=== PATIENT | female | born 1950 | race African-American/Black ===

== ENCOUNTER → 2016-11-08 | Outpatient (CLI) | payer MEDICARE ==
[~2016-11-08] MED LIST: AMLO10 PO; ASPI-146 PO; ASPI325T PO; ATEN100T PO; ATEN1TAB75 PO; COMMODE 3-IN-11 MIS; CPMMACHINE; ENOX40IN SQ; ENOX40P SQ; FOLI1TAB PO; FOLI1TAB6 PO; METF500T PO; NORC5TAB PO; OXYB5TAB10 PO; OXYB5TAB33 PO; SULF500 PO; TRIA37.5 PO; TRIA37.512 PO; WALKER WHEELS/F1 MIS; [UNRECOGNIZED DRUG - CODE] PO
== END ==
LOC: CPRE 09:10
PROVIDERS: ATTEND Orthopaedic Surgery
DX: M17.12 Unilateral primary osteoarthritis, left knee (principal)

== ENCOUNTER 2016-11-24 06:57 | Inpatient (IN) | payer MEDICARE ==
[~2016-11-24] VITALS: Ht 167.6 cm; Wt 108.2 kg
[~2016-11-24 06:57] MED LIST changes: -ASPI-146 PO; -ASPI325T PO; -ATEN1TAB75 PO; -COMMODE 3-IN-11 MIS; -CPMMACHINE; -ENOX40IN SQ; -ENOX40P SQ; -FOLI1TAB PO; -METF500T PO; -NORC5TAB PO; -OXYB5TAB33 PO; -TRIA37.512 PO; -WALKER WHEELS/F1 MIS
[2016-11-24] MEDS ORDERED: VANCOMYCIN 1000 MG/NS 250 ML (for <70 kg) IV SCH ×2 (07:30)
[2016-11-24] MEDS ORDERED: LACTATED RINGER'S 1000 ML IV PRN (07:30)
[2016-11-24] MEDS ORDERED: METOPROLOL TARTRATE 25 MG TAB PO PRN (07:30)
[2016-11-24] MEDS ORDERED: ROPIVACAINE PERI-ARTICULAR INJECTION. P-ARTICULR SCH ×5 (07:30)
[2016-11-24] MEDS ORDERED: INSULIN HUMAN REGULAR 1,000 UNITS/10 ML VIAL SQ PRN (07:30)
[2016-11-24] MEDS ORDERED: CHLORHEXIDINE GLUCONATE 2 % 1 PACK (2 CLOTHS) TOPICAL PRN (07:30)
[2016-11-24] MEDS ORDERED: TRANEXAMIC ACID INJ 1,082 MG in SODIUM CHLORIDE 0.9% INJ 100 ML IV SCH ×2 (07:30→13:00)
[2016-11-24] MEDS ORDERED: POVIDONE IODINE 5% (ANTISEPSIS KIT) 4 APPLICATIONS EACH NARE PRN (07:30)
[2016-11-24] MEDS ORDERED: POVIDONE IODINE 7.5% SCRUB 118 ML BOTTLE TOPICAL SCH (07:30)
[2016-11-24] MEDS ORDERED: ceFAZolin 2 GM PREMIX 50 ML IV SCH (07:30)
[2016-11-24] MEDS ORDERED: SODIUM CHLORID 0.9% 500 ML IV PRN (07:30)
[2016-11-24] MEDS ORDERED: DEXAMETHASONE SOD PHOS 20 MG/5 ML VIAL IV SCH (07:45)
[2016-11-24] MEDS ORDERED: ACETAMINOPHEN 1000 MG/100 ML 100 ML IV ONE (09:17)
[2016-11-24] MEDS ORDERED: FAMOTIDINE 20 MG/2 ML VIAL ONE (09:17)
[2016-11-24] MEDS ORDERED: GENTAMICIN SULFATE 80 MG/2 ML VIAL ONE (09:18)
--- NOTE | 2016-11-24 09:52 | EKG ---
Date Performed: 11/24/2016 Time Performed: 07:44:07 PTAGE: 66 years EKG: SINUS BRADYCARDIA NO PREVIOUS TRACING DOCTOR: Billy Jean Interpretating Date/Time 11/24/2016 09:50:27
[2016-11-24] MEDS ORDERED: NORC5TAB PO (11:52)
[2016-11-24] MEDS ORDERED: ENOX40IN SQ (11:52)
[2016-11-24] MEDS ORDERED: ASPI-146 PO (11:52)
--- NOTE | 2016-11-24 11:55 | PD.OP ---
cc: Vipul Chan MD Operative Report Date of Surgery: Nov 24, 2016 Preoperative Diagnosis: Left knee severe arthritis Postoperative Diagnosis: Same Procedure: Left total knee arthroplasty Anesthesia: Adductor canal block and general Surgeon: Vipul Chan Swimming Pool Maintenance(s): ELVIRA Tabor The surgical procedure was assisted by my Advanced Registered Nurse Practitioner. My GOVERNMENT CLERK presence was necessary throughout this case for the manipulation and positioning of the surgical extremity. My GOVERNMENT CLERK was assisting me throughout the duration of this procedure. The skill set of an Advance Registered Nurse Practitioner was medically necessary to complete this procedure. During the surgical case, the surgical coder was working at the back table and the Advance Registered Nurse Practitioner was directly assisting me. Operation and Findings: IMPLANTS: DePuy Attune: Patella: size 35. Femur, posterior stabilized size 7. Tibia, rotating platform size 5. Tibial insert, rotating platform, posterior stabilized size 6 mm thickness. ESTIMATED BLOOD LOSS: 150 cc TOURNIQUET TIME: 41 minutes at 250 mmHg pressure. JUSTIFICATION FOR PROCEDURE: The patient has end-stage osteoarthritis to the knee. There is an attached conservative measures pathway form in the chart that describes the nonoperative measures that were undertaken prior to consideration of surgical management. The patient understood the risks and benefits of surgical management. See my office notes for further details PROCEDURE: The patient was brought back to the operative theatre. Adequate anesthesia was obtained. The patient received intravenous vancomycin and Ancef. The lower extremity was prepped and draped in the usual sterile fashion.The leg was exsanguinated, the tourniquet was raised. A standard anterior incision was performed followed by medial parapatellar arthrotomy was performed. End-stage arthritis was identified. Osteotomy of the patella was performed. We drilled holes for the patella. We trialed the patella component. We placed an intramedullary guide into the distal femur. We ultimately resected 12 mm off of the distal femur in 5 degrees of valgus. The remnants of the ACL and PCL were resected. Osteotomy of the proximal tibia was performed, resecting 5 mm off of the medial side. This was done with 3 degrees of posterior slope using an extramedullary guide. The distal end of the guide was placed in the mid aspect of the ankle. The femur was sized, and four chamfer cuts were completed in 3 of external rotation. We then cut the central box in the distal femur to replace the PCL. We resected the remnants of the menisci and removed osteophytes off of the femur and tibia. We then trialed the knee. We punched the tibia for the keel, and then used standard technique to cement in components. Excess cement was removed. We trialed the knee again and the final polyethylene thickness was chosen to provide extension to 0 degrees, and flexion of 140 degrees to gravity. The ligaments were appropriately balanced. Lateral release was necessary to obtain excellent patellofemoral tracking. The tourniquet was released and adequate hemostasis was obtained. An intra- articular injection of a ropivacaine cocktail was injected. The posterior knee was inspected for excess cement, which was removed. The final polyethylene was put into position after thorough irrigation. We then closed deep fascia with a #2 Stratafix followed by skin with 2-0 Vicryl followed by augustin. Postop plan is to weight-bear as tolerated. DVT prophylaxis will be performed with Jo, ТАТЬЯНА chan, early mobilization, and Lovenox followed by aspirin. Vipul Chan MD Nov 24, 2016 11:55
[2016-11-24] MEDS ORDERED: ONDANSETRON HCL 4 MG/2 ML VIAL IVP PRN (12:00)
[2016-11-24] MEDS ORDERED: GLYCOPYRROLATE 1 MG/5 ML SYRINGE IV PUSH ONE (12:00)
[2016-11-24] MEDS ORDERED: MORPHINE SULFATE 4 MG/ML INJ IV ONE (12:00)
[2016-11-24] MEDS ORDERED: MAGNESIUM HYDROXIDE SUSP 30 ML CUP PO PRN (12:00)
[2016-11-24] MEDS ORDERED: LIDOCAINE HCL 1% PF 5 ML AMPULE OTHER ONE (12:00)
[2016-11-24] MEDS ORDERED: ALUMINUM/MAGNESIUM/SIMETH 30 ML CUP PO PRN (12:00)
[2016-11-24] MEDS ORDERED: SODIUM CHLORIDE 0.9% FLUSH 5 ML FLUSH IVF PRN (12:00)
[2016-11-24] MEDS ORDERED: NEOSTIGMINE 3 MG/3 ML SYR IV ONE (12:00)
[2016-11-24] MEDS ORDERED: NALOXONE HCL 0.4 MG/ML AMP IV PRN (12:00)
[2016-11-24] MEDS ORDERED: MIDAZOLAM HCL 2 MG/2 ML VIAL IV ONE (12:00)
[2016-11-24] MEDS ORDERED: diphenhydrAMINE HCL 50 MG/ML VIAL IV PRN (12:00)
[2016-11-24] MEDS ORDERED: ZOLPIDEM TARTRATE 5 MG TAB PO PRN (12:00)
[2016-11-24] MEDS ORDERED: Post-op Orders (for Pharmacy) MISC XX ONE (12:00)
[2016-11-24] MEDS ORDERED: ACETAMINOPHEN/HYDROcodone 325 MG/5 MG TAB PO PRN (12:00)
[2016-11-24] MEDS ORDERED: MORPHINE SULFATE 4 MG/ML INJ IV PUSH PRN (12:00)
[2016-11-24] MEDS ORDERED: PROPOFOL 200 MG/20 ML AMP IV ONE (12:00)
[2016-11-24] MEDS ORDERED: BISACODYL 10 MG SUPP RECTAL PRN (12:00)
[2016-11-24] MEDS ORDERED: ONDANSETRON HCL 4 MG/2 ML VIAL IV PUSH ONE (12:00)
[2016-11-24] MEDS ORDERED: ROCURONIUM INJ 50 MG/5 ML SYRINGE IV PUSH ONE (12:00)
[2016-11-24] MEDS ORDERED: DO NOT ADM ANY ANTICOAGULANT DRUGS PRN (12:04)
[2016-11-24] MEDS: SODIUM CHLOR 0.9% 1000 ML INJ 1,000 ML IV SCH ×2 (12:15→23:30)
[2016-11-24] MEDS ORDERED: *morphine SULFATE 8 MG/ML PERIprocedure ONLY ONE ×2 (12:41→13:15)
--- NOTE | 2016-11-24 12:54 | RADRPT ---
EXAM DATE/TIME: 11/24/2016 12:08 [place] COMPARISON: No previous studies available for comparison. INDICATIONS : Post-op left knee. MEDICAL HISTORY : None. SURGICAL HISTORY : None. ENCOUNTER: Initial ACUITY: 1 day PAIN SCORE: 0/10 LOCATION: Left Knee. FINDINGS: Two view examination of the left knee demonstrates no evidence of fracture or dislocation. Left knee arthroplasty. Postsurgical changes. No hardware loosening. CONCLUSION: Left knee arthroplasty. Gt Sykes MD on November 24, 2016 at 12:51 Board Certified Radiologist. This report was verified electronically.
[2016-11-24] MEDS ORDERED: sulfaSALAzine 500 MG TAB PO SCH (13:00)
--- NOTE | 2016-11-24 14:04 | PD.CONS ---
HPI Service [facility] Hospitalists Consult Requested By Dr. Vipul Chan Reason for Consult Medical Management Primary Care Physician Christiana Menjivar MD Diagnoses: History of Present Illness Mrs. Farrell is a 66 y/o female with HTN, diabetes mellitus, Ulcerative colitis and Osteoarthritis. She [place] [facility] [place] for left total knee arthroplasty with Dr. Chan[facility] team was consulted to help with medical management of the pts chronic medical issues. Pt is seen post- operatively on the orthopedic floor. Pt is somewhat lethargic and not able to provide much information. Her daughters are at the bedside and confirm information regarding the patients medical history. She reports some pain in the left knee but otherwise offers no complaints. Pt is planning for discharge with C/PT. Review of Systems Constitutional: DENIES: Fever, Chills Respiratory: DENIES: Cough, Shortness of breath Cardiovascular: DENIES: Chest pain, Palpitations Gastrointestinal: DENIES: Abdominal pain, Nausea, Vomiting Genitourinary: DENIES: Dysuria Musculoskeletal: COMPLAINS OF: Joint pain Integumentary: DENIES: Rash Neurologic: DENIES: Headache Psychiatric: DENIES: Confusion Past Family Social History Past Medical History HTN Diabetes mellitus, type 2 Hemorrhoids Osteoarthritis Ulcerative colitis Past Surgical History Tubal ligation Hemorrhoidectomy Reported Medications Triamterene-Hydrochlorothiazide 37.5-25 Mg 1 Tab PO DAILY Azulfidine 1,000 Mg PO Q6H (?2,000mg BID) Ditropan 5 Mg PO Q12HR Folic Acid 1 Mg PO DAILY Azasan 150 Mg PO DAILY (?100mg daily) Atenolol 100 Mg PO DAILY Norvasc 10 Mg PO DAILY ?Metformin 500Mg PO BID Allergies: Coded Allergies: No Known Allergies (Unverified , 11/24/16) Family History Sister with a hx of ulcerative colitis and colon cancer at age 53 Social History Denies any alcohol, tobacco or illicit drug use Physical Exam Vital Signs Vital Signs Date Time Temp Pulse Resp B/P (MAP) Pulse Ox O2 Delivery O2 Flow Rate FiO2 11/24/16 13:30 70 16 147/77 (100) 95 Nasal Cannula 2 11/24/16 13:15 68 16 162/85 (110) 95 Nasal Cannula 2 11/24/16 13:00 69 16 154/81 (105) 98 Nasal Cannula 2 11/24/16 12:45 71 16 146/74 (98) 96 Nasal Cannula 2 11/24/16 12:30 73 16 153/85 (107) 98 Nasal Cannula 2 11/24/16 12:15 80 15 137/76 (96) 98 Nasal Cannula 2 11/24/16 12:05 97.5 82 15 144/81 (102) 99 Simple Mask 11/24/16 08:20 98.6 55 16 125/70 (88) 100 Physical Exam GENERAL: This is a well-nourished, well-developed patient, in no apparent distress. HEENT: Atraumatic. Normocephalic. No temporal or scalp tenderness. No scleral icterus. Airway patent. NECK: Trachea midline, supple, nontender. CARDIO: Regular. RESP: CTA bilaterally. No wheezes, rales, or rhonchi. ABD: Abdomen soft, non-tender, nondistended. No hepato-splenomegaly, or palpable masses. No guarding. EXT: Left knee bandages are c/d/i and LLE in CPM machine NEURO: Awake and alert. Motor and sensory grossly within normal limits. Normal speech. Assessment and Plan Problem List: (1) Osteoarthritis of knee ICD Codes: M17.10 - Unilateral primary osteoarthritis, unspecified knee Status: Chronic Plan: - Pt is s/p left total knee arthroplasty on 11/24/[address] Chan - Post-op pain control per Ortho - PT daily - IS - Constipation precautions - DVT prophylaxis - Pt is planning for HHC/PT upon discharge. (2) Status post total knee replacement, left ICD Codes: Z96.652 - Presence of left artificial knee joint Status: Acute Plan: - See above (3) HTN (hypertension) ICD Codes: I10 - Essential (primary) hypertension Status: Chronic Plan: - Home meds resumed - Monitor (4) Diabetes mellitus ICD Codes: E11.9 - Type 2 diabetes mellitus without complications Status: Chronic Plan: - Hold OHA - NovoLog SSI - Accu checks - If tolerating oral intake tomorrow resume Metformin 500mg BID Assessment and Plan Patient examined. Assessment and plan formulated with Sunita Welsh PA-C. I agree with the above. Problem Qualifiers (1) Osteoarthritis of knee: (2) Diabetes mellitus: Sunita Welsh Nov 24, 2016 14:04 Sergo Brenner MD Nov 24, 2016 15:27
[2016-11-24] MEDS ORDERED: METF500T PO (14:24)
[2016-11-24] MEDS: ACETAMINOPHEN/HYDROcodone 325 MG/5 MG TAB PO PRN ×3 (14:36→23:31)
[2016-11-24 15:00] VITALS: BP 137/78; PULSE 66; RESP 17; TEMP 95.9; O2SAT 97
--- NOTE | 2016-11-24 15:10 | HHI.DCPOC ---
Discharge Care Plan Diagnosis: (1) Status post total knee replacement, left (2) Osteoarthritis of knee Your Health Problems Are: Difficulty with ADL Goals to Promote Your Health * To prevent worsening of your condition and complications * To maintain your health at the optimal level Directions to Meet Your Goals Take your medications as prescribed Follow your dietary instruction Follow activity as directed Keep your appointments as scheduled Take your immunizations and boosters as scheduled If your symptoms worsen call your PCP, if no PCP go to Urgent Care Center or Emergency Room Smoking is Dangerous to Your Health. Avoid second hand smoke Call the 24-hour hour crisis hotline for domestic abuse at Geoff Soriano Nov 24, 2016 15:10
--- NOTE | 2016-11-24 15:11 | HHI.FF ---
Face to Face Verification Diagnosis: (1) Status post total knee replacement, left (2) Osteoarthritis of knee Physical Therapy Gait training, Transfer training, bed to chair Knee: Total knee Left LE Weight Bearing: WB as tolerated Left LE Range of Motion: Active ROM Nursing Nursing: Soo teaching, Dressing changes Dressing Changes: Daily dressing change I have seen patient Lakshmi Farrell on 11/24/16. My clinical findings support the need for the requested home health care services because: Limited ability to care for self High risk of falls I certify that my clinical findings support that this patient is homebound because: Post-op weakness Unsteady gait/balance Geoff Soriano Nov 24, 2016 15:11
[2016-11-24] MEDS ORDERED: CPMMACHINE (15:13)
[2016-11-24] MEDS ORDERED: WALKER WHEELS/F1 MIS (15:13)
[2016-11-24] MEDS ORDERED: COMMODE 3-IN-11 MIS (15:13)
[2016-11-24] MEDS: INSULIN ASPART SUPPLEMENTAL SCALE SQ SCH ×2 (17:57→21:00)
[2016-11-24 20:00] VITALS: BP 102/65; PULSE 61; RESP 18; TEMP 96.8; O2SAT 92
[2016-11-24] MEDS: sulfaSALAzine 500 MG TAB PO SCH (20:29)
[2016-11-24] MEDS: OXYBUTYNIN CHLORIDE 5 MG TAB PO SCH (20:29)
[2016-11-24] MEDS: SODIUM CHLORIDE 0.9% FLUSH 5 ML FLUSH IVF SCH (20:32)
[2016-11-25 00:30] VITALS: BP 129/68; PULSE 61; RESP 17; TEMP 96.8; O2SAT 95
[2016-11-25] MEDS: ACETAMINOPHEN/HYDROcodone 325 MG/5 MG TAB PO PRN ×3 (03:48→13:03)
[2016-11-25 04:00] VITALS: BP 119/66; PULSE 63; RESP 16; TEMP 96.9; O2SAT 98
[2016-11-25] MEDS ORDERED: azaTHIOprine 50 MG TAB PO SCH ×2 (06:00)
[2016-11-25 07:19] LABS: HEMATOCRIT 33.4 % (35.0-46.0); MEAN CELL VOLUME 89.6 FL (80.0-100.0); MEAN CORPUSCULAR HEMOGLOBIN 29.1 PG (27.0-34.0); MEAN CORPUSCULAR HGB CONC 32.5 % (32.0-36.0); PLATELET COUNT 228 TH/MM3 (150-450); RED BLOOD COUNT 3.72 MIL/MM3 (4.00-5.30); RED CELL DISTRIBUTION WIDTH 15.5 % (11.6-17.2); REVIEW FLAG FINAL; WHITE BLOOD COUNT 7.6 TH/MM3 (4.0-11.0)
[2016-11-25 08:00] VITALS: BP 114/59; PULSE 71; RESP 20; TEMP 98.3; O2SAT 97
[2016-11-25] MEDS: INSULIN ASPART SUPPLEMENTAL SCALE SQ SCH ×2 (08:00→12:00)
[2016-11-25] MEDS: sulfaSALAzine 500 MG TAB PO SCH (08:53)
[2016-11-25] MEDS: OXYBUTYNIN CHLORIDE 5 MG TAB PO SCH (08:54)
[2016-11-25] MEDS ORDERED: TRIAMTERENE/HCTZ 37.5 MG/25 MG TAB PO SCH (09:00)
[2016-11-25] MEDS ORDERED: FOLIC ACID 1 MG TAB PO SCH (09:00)
[2016-11-25] MEDS: SODIUM CHLOR 0.9% 1000 ML INJ 1,000 ML IV SCH (09:00)
[2016-11-25] MEDS: SODIUM CHLORIDE 0.9% FLUSH 5 ML FLUSH IVF SCH (09:00)
[2016-11-25] MEDS ORDERED: ATENOLOL 100 MG TAB PO SCH (09:00)
[2016-11-25] MEDS ORDERED: ENOXAPARIN SODIUM 40 MG/0.4 ML SYRINGE SQ SCH (11:00)
[2016-11-25 11:59] VITALS: BP 94/53; PULSE 75; RESP 20; TEMP 99.1; O2SAT 95
--- NOTE | 2016-11-25 12:38 | PD.ORT.PN ---
Subjective Post Op Day #: 1 Subjective Remarks The patient is resting in bed with minimal pain. Patient is ambulatory. Patient states she is ready to go home with home health today. Objective Vitals Vital Signs Date Time Temp Pulse Resp B/P (MAP) Pulse Ox O2 Delivery O2 Flow Rate FiO2 11/25/16 11:59 99.1 75 20 94/53 (67) 95 11/25/16 08:00 98.3 71 20 114/59 (77) 97 11/25/16 04:00 96.9 63 16 119/66 (83) 98 11/25/16 00:30 96.8 61 17 129/68 (88) 95 11/24/16 20:00 96.8 61 18 102/65 (77) 92 11/24/16 15:00 95.9 66 17 137/78 (97) 97 11/24/16 13:30 70 16 147/77 (100) 95 Nasal Cannula 2 11/24/16 13:15 68 16 162/85 (110) 95 Nasal Cannula 2 11/24/16 13:00 69 16 154/81 (105) 98 Nasal Cannula 2 11/24/16 12:45 71 16 146/74 (98) 96 Nasal Cannula 2 11/24/16 12:30 73 16 153/85 (107) 98 Nasal Cannula 2 I/O 11/24/16 11/24/16 11/24/16 11/25/16 11/25/16 11/25/16 07:00 15:00 23:00 07:00 15:00 23:00 Intake Total 1331 ml 200 ml 1073 ml Output Total 100 ml Balance 1231 ml 200 ml 1073 ml Intake Oral 0 ml IV Total 231 ml 200 ml 1073 ml Other 1100 ml Output Urine Total 0 ml Estimated Blood Loss 100 ml # Voids 1 Result Diagram: 11/25/16 0632 Procedures Left TKA Objective Remarks Patient's dressing was changed with no drainage. Incision is well approximated with surgical clips intact. No redness or s/s of infection. Calf is soft and nontender. + SILT. EHL/TA/G intact. Assessment & Plan Ortho Post Op Day #: 1 Problem List: Assessment and Plan POD #1: Right TKA 1. WBAT RLE 2. Lovenox followed by ASA for DVT prophylaxis 3. Ice to the right knee PRN 4. Stable for discharge home today with home health. 5. F/U with Dr. Chan or ELVIRA Doe as previously scheduled. Geoff Soriano Nov 25, 2016 12:38
[2016-11-25] MEDS ORDERED: ASPI325T PO (12:41)
[2016-11-25] MEDS ORDERED: ENOX40P SQ (12:42)
[2016-11-25] MEDS ORDERED: NORC5TAB PO (12:43)
[2016-11-25] MEDS ORDERED: DEXAMETHASONE SOD PHOS 20 MG/5 ML VIAL IV ONE (13:00)
[2016-11-25] MEDS ORDERED: MULTIVITAMINS/MINERALS THERAPEUTIC TAB PO SCH (21:00)
[2016-11-25] MEDS ORDERED: DOCUSATE SODIUM 100 MG CAP PO SCH (21:00)
--- NOTE | 2016-11-28 16:57 | HHI.DS ---
Discharge Summary Admission Date Nov 24, 2016 at 06:57 Discharge Date: Nov 25, 2016 Admitting Diagnosis Primary localized OA, lower leg Status post total knee replacement, left Diagnosis: (1) Osteoarthritis of knee Diagnosis: Principal ICD Codes: M17.10 - Unilateral primary osteoarthritis, unspecified knee Status: Chronic (2) Status post total knee replacement, left Diagnosis: Principal ICD Codes: Z96.652 - Presence of left artificial knee joint Status: Acute Procedures Left TKA Brief History This is a 66 year old female patient with severe OA of the left knee CBC/BMP: 11/25/16 0632 PE at Discharge Patient's dressing was changed with no drainage. Incision is well approximated with surgical clips intact. No redness or s/s of infection. Calf is soft and nontender. + SILT. EHL/TA/G intact. Hospital Course The patient was admitted to the hospital with severe left knee OA to have a left TKA. The patient's surgery went well without complication. The patient is WBAT on the LLE. The patient is on a regular diet. The patient was placed on Lovenox followed by ASA for DVT prophylaxis. The patient was discharged home with home health and will f/u with Dr. Chan or ELVIRA Doe as previously scheduled. Pt Condition on Discharge: Stable Discharge Disposition: Disch w/ Home Health Serv Discharge Instructions Diet Instructions: Diabetic Diet Activities You Can Perform: Weight Bearing as [place] Activities to Avoid: Strenuous Activity Follow up Referrals: Orthopedics with Vipul Chan MD SNF/[facility]/ with [facility] New Medications: Aspirin (Aspirin) 325 Mg Tab 325 MG PO DAILY for Blood Clot Prevention, #30 TAB 0 Refills Commode 3-in-1 (Commode 3-in-1) 1 Mis Mis EA .ROUTE DIRECTED, #1 0 Refills CPM-Continuous Passive Motion Machine (CPM-Continuous Passive Motion Machine) 1 Ea Device EA .ROUTE DIRECTED, #1 0 Refills Enoxaparin Inj (Lovenox Inj) 40 Mg/0.4 Ml Syr 40 MG SQ DAILY for Blood Clot Prevention for 10 Days, SYRINGE 0 Refills Hydrocodone-Acetaminophen ([place]) 5-325 mg Tab 1-2 TAB PO every 4-6 hours PRN for PAIN, #60 TAB 0 Refills Walker with Front Wheels (Walker with Front Wheels) 1 Mis Mis EA .ROUTE DIRECTED, #1 0 Refills Continued Medications: Amlodipine (Norvasc) 10 Mg Tab 10 MG PO DAILY for Blood Pressure Management, #30 TAB 0 Refills Atenolol (Atenolol) 100 Mg Tab 100 MG PO DAILY for Blood Pressure Management, #30 TAB 0 Refills Azathioprine (Azasan) 75 Mg Tab 100 MG PO DAILY for Immunosuppression, #30 TAB 0 Refills Hazardous agent; use appropriate precautions for handling and disposal. Folic Acid (Folic Acid) 1 Mg Tablet 1 MG PO DAILY Metformin (Metformin) 500 Mg Tab 500 MG PO BIDPC for Blood Sugar Management, #60 TAB 0 Refills Oxybutynin (Ditropan) 5 Mg Tab 5 MG PO Q12HR for Urinary Symptom Managemen, #60 TAB 0 Refills Sulfasalazine (Azulfidine) 500 Mg Tab 2000 MG PO BID, #240 TAB 0 Refills Triamterene-Hydrochlorothiazide (Triamterene-Hydrochlorothiazide) 37.5-25 Mg Tab 1 TAB PO DAILY, #30 TAB 0 Refills Geoff Soriano Nov 28, 2016 16:57
== END 2016-11-25 16:44 | disposition home health service (06) | DRG 470 ==
LOC: HSDI 06:57 → N06A 14:08
PROVIDERS: ADMIT Orthopaedic Surgery; ATTEND Orthopaedic Surgery
PROC: 3E0T3BZ Introduction of Anesthetic Agent into Peripheral Nerves and Plexi, Percutaneous Approach (ICD-10-PCS; 2016-11-24)
PROC: 0SRD069 Replacement of Left Knee Joint with Oxidized Zirconium on Polyethylene Synthetic Substitute, Cemented, Open Approach (ICD-10-PCS; principal; 2016-11-24 09:43)
DX: M17.12 Unilateral primary osteoarthritis, left knee (principal); K51.90 Ulcerative colitis, unspecified, without complications; I10 Essential (primary) hypertension; E11.9 Type 2 diabetes mellitus without complications; Z79.84 Long term (current) use of oral hypoglycemic drugs
CPT/HCPCS: 73560; 82948; 85027; 86850; 86900; 86901; 93005; 94150; C1776; J0131; J0690; J0735; J1100; J1580; J1650; J1815; J1885; J2250; J2270; J2405; J2710; J2795; J3010; J3370; J7030; J7050; J7120; J7500; L1830